=== PATIENT | male | born 1980 | race African-American/Black ===

== ENCOUNTER 2017-08-25 20:01 | Emergency (ER) | payer MEDICAID ==
[~2017-08-25] VITALS: Ht 172.7 cm; Wt 77.1 kg
[2017-08-25] MEDS ORDERED: HYDROcodone-ACET 10/325MG TAB PO ONE (22:45)
[2017-08-25 23:26] VITALS: BP 127/29
== END 2017-08-25 23:37 | disposition home or self-care (01) ==
LOC: ER 20:01
DX: S62.291A Other fracture of first metacarpal bone, right hand, initial encounter for closed fracture (principal); W22.8XXA Striking against or struck by other objects, initial encounter; Y93.89 Activity, other specified; Y99.8 Other external cause status; Y92.89 Other specified places as the place of occurrence of the external cause
CPT/HCPCS: 29125; 73110; 73130

== ENCOUNTER 2017-10-23 16:06 | Emergency (ER) | payer MEDICAID ==
[~2017-10-23] VITALS: Ht 175.3 cm; Wt 77.1 kg
[2017-10-23 16:36] VITALS: BP 115/66
[2017-10-23] MEDS ORDERED: HYDROcodone-ACET 10/325MG TAB PO ONE (19:15)
== END 2017-10-23 23:32 | disposition home or self-care (01) ==
LOC: ER 16:20
DX: S62.501A Fracture of unspecified phalanx of right thumb, initial encounter for closed fracture (principal); X58.XXXA Exposure to other specified factors, initial encounter; Y93.89 Activity, other specified; Y92.89 Other specified places as the place of occurrence of the external cause; Y99.8 Other external cause status
CPT/HCPCS: 29125; 73130

== ENCOUNTER 2021-05-27 19:19 | Emergency (ER) | payer MEDICAID ==
[~2021-05-27] VITALS: Ht 180.3 cm; Wt 79.4 kg
[2021-05-27] MEDS ORDERED: ACETAMINOPHEN 500 MG TAB PO ONE (20:00)
[2021-05-27] MEDS ORDERED: KETOROLAC TROMETH 60MG/2ML VIAL IM ONE ×2 (20:00)
[2021-05-27 22:33] VITALS: BP 155/71
== END 2021-05-27 22:58 | disposition home or self-care (01) ==
LOC: ER 19:19
DX: S21.252A Open bite of left back wall of thorax without penetration into thoracic cavity, initial encounter (principal); S31.815A Open bite of right buttock, initial encounter; W54.0XXA Bitten by dog, initial encounter; Y93.89 Activity, other specified; Y92.89 Other specified places as the place of occurrence of the external cause; Y99.8 Other external cause status
CPT/HCPCS: 96372; 99283; J1885; J7030